=== PATIENT | female | born 1985 | race Hispanic/Latino ===

== ENCOUNTER 2016-11-20 01:44 | Inpatient (IN) | payer MEDICAID ==
[~2016-11-20] VITALS: Ht 142.2 cm; Wt 63.6 kg
[2016-11-20] MEDS ORDERED: Lactated Ringer's 1,000 ML IV PRN (07:23)
[2016-11-20] MEDS ORDERED: Carboprost 250 mCg/mL Inj IM PRN ×2 (07:25→17:20)
[2016-11-20] MEDS ORDERED: fentaNYL-PF 50 mCg/mL 2 mL Inj IVPUSH PRN (07:25)
[2016-11-20] MEDS ORDERED: Sodium Chloride LOK Flush 10 mL Syringe IVFLUSH PRN (07:25)
[2016-11-20] MEDS ORDERED: Oxytocin 30 Units/500 mL LR 30 UNITS in IV Premix 1 EACH IV PRN ×3 (07:25→17:20)
[2016-11-20] MEDS ORDERED: Hemorrhage Kit, Post Partum XX ONE ×2 (07:25→17:20)
[2016-11-20] MEDS ORDERED: Oxytocin 10 Unit/mL Inj IM PRN ×2 (07:25→17:20)
[2016-11-20] MEDS ORDERED: Ondansetron 2 mg/mL 2 mL Inj IVPUSH PRN (07:25)
[2016-11-20] MEDS ORDERED: Methylergonovine 0.2 mg/mL Inj IM PRN ×2 (07:25→17:20)
[2016-11-20 07:51] LABS: Mean Corpuscular Volume 84.9 fL (81-100)
[2016-11-20] MEDS ORDERED: PREN-56 PO (09:51)
--- NOTE | 2016-11-20 10:06 | HP ---
[address] [address] HISTORY AND PHYSICAL PATIENT: DARWIN GRADY : 1985 MR#: [id number] ADMIT: 11/20/2016 JOB ID: [id number] CHIEF COMPLAINT: The patient presented for scheduled induction of labor. HISTORY OF PRESENTING ILLNESS: This is a 31 years old, 6, para 5-0-0-5, with expected date of delivery of November 26, 2016, dated by a 13-week ultrasound. complicated with: * Gestational diabetes A1, diet controlled. * History of intrauterine growth restriction earlier in this . Estimated weight was at 9th percentile at 18 weeks, then 16th percentile at 26 weeks, then 13th percentile at 31 weeks and 18 percentile at 34 weeks, down to 14th percentile at 37 weeks. * History of borderline LISBETH. Last LISBETH was 8.5 cm at 37 weeks. * Obesity BMI 31 at the intake. * Rubella nonimmune. * Desires permanent sterilization. Consent signed September 26, 2016. * Marginal placenta previa, resolved. Induction of labor was recommended by [facility] at the [facility] secondary to the complications mentioned above. Today, the patient presented for scheduled induction. Informed consent was signed at the office on November 13, 2016. Risk, benefits and alternatives of induction were discussed in detail. All questions were answered. Informed consent was signed with american sign language interpreter patient clerical assistant. PAST MEDICAL HISTORY: * Vitamin D deficiency * Gastroesophageal reflex disease. PAST SURGICAL HISTORY: None. GYNECOLOGIC HISTORY: Menarche at age 12. Menses are irregular, last for seven days. Denies history of abnormal Pap smears. Denies history of sexually transmitted infections. Last Pap smear was June 13, 2016, with negative HPV and within normal limits cytology PAST OBSTETRIC HISTORY: First was in 2011, a term vaginal delivery, 7-pound with no anesthesia and no complications. Second in 2003, a term vaginal delivery, 7-pound infant, no anesthesia and no complications. Third in 2006, a term vaginal delivery, 9-pound with no anesthesia, no complication. Fourth in 2008, a term vaginal delivery, 7-pound infant with no anesthesia and no complications. Fifth in 2012. Term vaginal delivery, 9-pound infant with no anesthesia was complicated with gestational diabetes, diet controlled. SOCIAL HISTORY: Denies smoking, alcohol, or illicit drug abuse. FAMILY HISTORY: Diabetes in mother. MEDICATIONS: vitamins. ALLERGIES: No known drug allergies. REVIEW OF SYSTEMS: Eleven point review of systems negative except for the items mentioned in the history of presenting illness. PHYSICAL EXAMINATION: Blood pressure 98/58, heart rate 82, temperature 37.0. heart tones baseline 140s. Moderate variability. Positive accelerations. No decelerations. Contractions every 11 minutes. General: Alert, oriented to time, place and person. Head: Normocephalic, atraumatic. Neck: Supple. Chest: Equal air entry bilaterally. No added sounds. Cardiovascular: Regular rate and rhythm. Abdomen: Gravid. No tenderness. Estimated weight by Lyndon maneuver 6-1/2 pounds. Cervical exam: Cervix is 3 cm, 60%, medium consistency, -2 station and anterior with Hopkins score of 8. Lower extremities: Positive pulses bilaterally and no edema. LABORATORIES: labs: Blood type is O positive. Rubella non-immune, RPR nonreactive, hepatitis B surface antigen nonreactive. HIV nonreactive. Hematocrit 36% at 13 weeks. Antibody screening negative at 13 weeks. Quad screen negative. Chlamydia and gonorrhea screening negative on June 13, 2016. Group B strep test negative on October 23, 2016. Diabetes screening abnormal. Fasting 91, 1 hour 231, 2 hours 173 and 3 hours 164; that was at 27 weeks of gestation. Admission lab, white blood cells 9.6, hemoglobin 13.9, hematocrit 42.1%, platelets 238. ASSESSMENT: This is a 31 years old, 6, para 5-0-0-5, at 39 weeks and 1 day gestation with expected date of delivery of November 26, 2016, dated by a 13-week ultrasound, here for induction of labor for gestational diabetes, history of intrauterine growth retardation earlier in this , history of low amniotic fluid earlier in this , favorable cervix, Hopkins score of 8. PLAN: Risks, benefits and alternatives of induction of labor were discussed with the patient in detail including the risks of increased risk of section and failed induction. All questions were answered. The patient desires to proceed with induction as scheduled today. Informed consent was signed. Will start with Pitocin. MTDD
--- NOTE | 2016-11-20 14:21 | PCM.PNOBIP ---
Subjective Date of Service Nov 20, 2016 Subjective contractions getting stronger and more regular. Group B Strep Results: Negative Rubella: Non-Immune Blood Type: O RH Type: Positive Labs Laboratory Tests 11/20/16 07:35: White Blood Count 9.6, Red Blood Count 4.96, Hemoglobin 13.9, Hematocrit 42.1, Mean Corpuscular Volume 84.9, Mean Corpuscular Hemoglobin 28.0, Mean Corpuscular Hemoglobin Concent 33.0, Red Cell Distribution Width 14.0, Platelet Count 238 Exam Vital Signs Vital Signs Contraction frequency in minutes: MVUs: Vital Signs: VS reviewed, stable Heart Tracings Heart Tones Baseline 140 bpm Heart Rate Variability: Moderate Heart Rate Accelleration: Present Heart Rate Deceleration: Absent Heart Rate Category: I Tocometry/IUPC Contraction frequency in minutes: MVUs: Sterile Vaginal Exam Cervical Dilation: 4 cms Cervical Effacement: 70 % Station: -2 (AROM performed cervix become 5/70%/-2, IUPC placed blood noted in the cather then bloody stained amniotic fluid and passed 150 ml of cloted blood. ) Exam Abdomen: Abdomen non-tender General: Alert, Oriented X3 OB Intrapartum Assessment/Plan Assessment This is a 31 years old, 6, para 5-0-0-5, at 39 weeks and 1 day gestation with expected date of delivery of November 26, 2016, dated by a 13-week ultrasound, Induction of labor for gestational diabetes, history of intrauterine growth retardation earlier in this , history of low amniotic fluid earlier in this , On Pitocin AROM at 1324 Clear fluid Intrapartum bleeding EBL 150 ml, heart tones category 1, no uterine tenderness. Bleeding is minimal at this time. Continue close monitoring. Type and screen completed. Will cross and match 2 units on hold. Bertram Fregoso MD Nov 20, 2016 14:21
[2016-11-20] MEDS: Lactated Ringer's 1,000 ML IV SCH ×3 (15:19→17:20)
[2016-11-20] MEDS ORDERED: Measles-Mumps-Rubella Vaccine 0.5 mL Inj SUBQ ONE (17:20)
[2016-11-20] MEDS: Witch Hazel-Glycerin Pads TOPICAL PRN ×2 (18:38→19:21)
[2016-11-20] MEDS: Benzocaine (Dermoplast) 20% 60 Gm Spray TOPICAL PRN ×2 (18:38→19:21)
[2016-11-20] MEDS: LANOlin HPA 7 Gm Ointment TOPICAL PRN ×2 (18:38→19:21)
[2016-11-20] MEDS: Ascorbic Acid 500 mg Tablet PO SCH (20:37)
--- NOTE | 2016-11-20 21:23 | OP ---
[address] [address] OPERATIVE REPORT PATIENT: DARWIN GRADY : 1985 MR#: [id number] ADMIT: 11/20/2016 JOB ID: [id number] DATE OF SURGERY: 11/20/2016 SURGEON: Bertram Fregoso MD PREOPERATIVE DIAGNOSIS(ES): 1. Intrauterine at 39 weeks and 1 day gestation. 2. Gestational diabetes, diet controlled. 3. History of intrauterine growth restriction earlier in this . 4. History of low amniotic fluid earlier in this . POSTOPERATIVE DIAGNOSIS(ES): 1. Intrauterine at 39 weeks and 1 day gestation, status post normal vaginal delivery. 2. Gestational diabetes, diet controlled. 3. History of intrauterine growth restriction earlier in this . 4. History of low amniotic fluid earlier in this . PROCEDURE: 1. Spontaneous vaginal delivery. 2. Repair of first-degree perineal laceration. ESTIMATED BLOOD LOSS: 300 mL. COMPLICATIONS: None. OUTCOME: A male infant delivered in cephalic presentation with no nuchal cord. Weight 3154 g, equivalent to 6 pounds 15 ounces. Apgars 9 at one minute and 9 at five minutes. Clear amniotic fluid. Placenta delivered intact spontaneously with a three-vessel cord. ANESTHESIA: None. PROCEDURE IN DETAIL: This is a 31-year-old 6, para 5-0-0-5 who presented at 39 weeks and 1 day gestation for scheduled induction of labor for gestational diabetes and a history of intrauterine growth restriction and a history of low amniotic fluid earlier in this . Induction was started with Pitocin as the cervix was favorable with a Hopkins score of 8. The cervix was 3 cm, 60%, medium consistency, -2 and position. Then, artificial rupture of membranes was performed at 1324. Clear fluid was noted, followed by bleeding noted after placing the intrauterine pressure catheter. Estimated blood loss was 150 mL of clotted blood. heart tones remained a category 1 tracing throughout labor. Bleeding was minimal after the first episode of bleeding. The patient progressed in labor and was found to be completely dilated at 1634 with a strong urge to push. She pushed effectively to deliver via spontaneous vaginal delivery over an intact perineum without epidural. Time of delivery was 1642. She delivered a male in cephalic presentation, right occiput anterior position. No nuchal cord. Shoulders delivered without difficulty. The infant was placed on the maternal abdomen. Delayed cord clamping was performed after 1 minute. Cord segment was collected for gases. Cord pH is 7.4. Cord blood was collected for typing. Then, the placenta delivered spontaneously intact at 1650. The placenta was examined and found to be intact with a three-vessel cord. Placenta was sent to Pathology for further evaluation. The perineum was examined. A first-degree laceration was repaired with 3-0 chromic, repaired with two simple interrupted stitches and one [id number] stitch. The laceration was hemostatic at the end of the procedure. Oxytocin was started after delivery of the placenta and 400 mcg of misoprostol was placed rectally prophylactically for hemorrhage. All instrument, needle and sponge counts were correct x2. and mother were stable and recovering in the delivery room in stable condition. Bertram Terrazas MD, was present and scrubbed for the entire procedure.
[2016-11-21] MEDS: Lactated Ringer's 1,000 ML IV SCH ×9 (00:05→20:05)
[2016-11-21 06:33] LABS: Mean Corpuscular Hemoglobin 28.1 pg (27.0-35.0); Mean Corpuscular Volume 84.5 fL (81-100)
[2016-11-21] MEDS ORDERED: CeFAZolin Inj 2 GM in IV Premix 1 EACH IV ONE (09:26)
--- NOTE | 2016-11-21 09:29 | PCM.PNOBPP ---
Subjective Date of Service Nov 21, 2016 Lochia: Normal Gastrointestinal: Good Appetite (NPO since midnight ), No N/V, Passing Flatus Postop Activity: Ambulating Independently, Ambulating in [place] Group B Strep Results: Negative Rubella: Non-Immune Blood Type: O RH Type: Positive Labs Laboratory Tests 11/21/16 06:10: White Blood Count 12.6, Red Blood Count 4.06, Hemoglobin 11.4, Hematocrit 34.3, Mean Corpuscular Volume 84.5, Mean Corpuscular Hemoglobin 28.1, Mean Corpuscular Hemoglobin Concent 33.2, Red Cell Distribution Width 13.6, Platelet Count 229 Exam Vital Signs Vital Signs 114/63. 64, 16, HR 99, 36.7. Tmax 37.4 Vital Signs: VS reviewed, stable Exam Abdomen: Fundus firm Lungs: Clear to Auscultation Heart: Exam Unremarkable General: Alert, Oriented X3 OB Post Assessment/Plan Assessment 31 Y PPD#1 Multiparty desires permanent sterilization. Informed consent was signed at the office > 30 days from LANA. Surgical consent signed today after reviewing R/B/A of tubal ligation vs male sterilization or LARC. Patient desires tubal ligation as scheduled today. Bertram Fregoso MD Nov 21, 2016 09:29
[2016-11-21] MEDS ORDERED: Sodium Citrate-Citric Acid 15 mL Solution PO ONE (09:30)
--- NOTE | 2016-11-21 09:51 | PCM.HPANE ---
Patient Data Surgeon Admitting Provider:Bertram Fregoso MD Attending Provider:Bertram Fregoso MD Primary Care Physician:Gerber Persaud MD Other Provider:Rachel Mcclendon Anesthesia Reason for Visit Induction INDUCTION Ht/WT & BMI Body Mass Index Allergies Coded Allergies: No Known Allergies (Verified Allergy, Unknown, 10/31/03) Uncoded Allergies: NKDA (Allergy, Unknown, 10/31/03) No Known Allergies (Allergy, Unknown, 10/31/03) Past Anesthesia History Anesthesia History: Denies:: Abnormal Airway, Anesthesia Reactions, Difficult Intubation, Fam Anesthesia Reaction, Fam Malignant Hypertherm, Malignant Hyperthermia Additional Information: No hx anesthesia Medications Reported Medications [id number]/Iron Fumarate/FA/Dss ( 19 Tablet)1 Each Tablet1 Each PO 11/20/16 History History of ENT Problems?: No HEENT History: Denies:: Abnormal Airway Cataracts Difficult Intubation Dysphagia Glaucoma Hearing Problem Sinus Problem TMJ Denture Type: None Teeth Condition: Within Normal Limits Hx of Heart Problems?: No Cardiovascular History: Denies:: AICD Abdominal Aortic Aneurism Atrial Fibrillation Cardiac Surgery Chest Pain Congestive Heart Failure Coronary Artery Disease Edema Heart Murmur Hypertension Irregular Heartbeat Pacemaker Peripheral Vascular Rheumatic Fever Thrombophlebitis Valvular Heart Disease Hx of Respiratory Problem?: No Respiratory History: Denies:: Asthma COPD Chest Surgery Cough Dyspnea Emphysema Hemoptysis Oxygen Administration Pneumonia Pulmonary Embolism Tuberculosis Use of C-PAP Machine Use of Inhalers / NEBS Hx Neurologic Problems?: No Neurological History: Denies:: Alzheimer's Disease CVA Dementia Dizziness Headaches Multiple Sclerosis Parkinson's Disease Peripheral Neuropathy Seizures TIA Hx of GI Problems?: No Gastrointestinal History: Denies:: Cirrhosis Diverticulitis Gall Bladder Disease Gastroesphageal Reflux Gastrointestinal Bleeding Heartburn Hepatitis Hiatal Hernia Liver Disease Rectal Bleeding Hx of Problems?: No HX of Peritoneal Dialysis: No Hx Musculoskeletal Problems?: No Hx Surgeries?: No Hx Alcohol Use: NoHx Substance Use: No Smoking Status: Unknown if Ever Smoker Have You Smoked inLast 12 mo: No Stop/Bang Risk Assessment Category Category 1A: Patient has history of documented sleep apnea, and HAS NOT received any narcotic, sedative or anesthesia administration during this stay. Category 1B: Patient has history of documented sleep apnea, and HAS received any narcotic , sedative or anesthesia administration during this stay Category 2: Patient has SUSPECTED Obstructive Sleep Apnea, and HAS received any narcotic , sedative or anesthesia administration during this stay. Category 3: Patient has SUSPECTED Obstructive Sleep Apnea and HAS NOT received narcotic, sedative or anesthesia administration during this stay. Category 4: Outpatient in Procedural Areas with known sleep apnea or who screen positive for High Risk via the STOP/BANG questionnaire. Exam Exam General Appearance: Alert, Oriented X3 HEENT/AIRWAY: MP 2, Neck Movement (FROM) Lungs: Clear to Auscultation, Clear to Percussion Heart: Exam Unremarkable, Regular Rate/Rhythm Meds/Labs/Diagnostics Admission Meds Current Medications Lactated Ringer's (Lr) 1,000 ml @ 125 mls/hr Q8H IV Last administered on 15:19; Start 11/20/16 at 08:58 Ferrous Sulfate (Feosol) 325 mg BIDWM PO Last administered on 11/20/16 20:37; Start 11/20/16 at 17:30 Ascorbic Acid (Vitamin C) 500 mg BIDWM PO Last administered on 11/20/16 20:37 ; Start 11/20/16 at 17:30 Labs Test 11/21/16 06:10 White Blood Count 12.6th/mm3 (3.8-10.1) Red Blood Count 4.06mil/mm3 (3.90-5.20) Hemoglobin 11.4g/dL (12.0-15.6) Hematocrit 34.3% (35.0-46.0) Mean Corpuscular Volume 84.5fL (81-100) Mean Corpuscular Hemoglobin 28.1pg (27.0-35.0) Mean Corpuscular Hemoglobin Concent 33.2% (32.0-37.0) Red Cell Distribution Width 13.6% (12.3-15.4) Platelet Count 229bil/L (150-400) Plan Impression Patient chart reviewed, patient interviewed and anesthestic plan with risks, benefits, and alternatives discussed, and informed consent obtained. ASA Physical Status: ASA1 Normal Healthy Anesthetic Plan: SAB Bene/Risks/Altern/Consents: Yes HP Complete Prior to Induction: Yes Jose L Smith MD Nov 21, 2016 07:15
[2016-11-21] MEDS ORDERED: Lactated Ringer's 500 ML IV PRN (09:52)
[2016-11-21] MEDS ORDERED: Lactated Ringer's 1,000 ML IV SCH (09:52)
[2016-11-21] MEDS ORDERED: EPHEDrine Sulfate 50 mg/mL Inj IVPUSH PRN (09:55)
[2016-11-21] MEDS ORDERED: Ondansetron 2 mg/mL 2 mL Inj IVPUSH PRN (09:55)
[2016-11-21] MEDS ORDERED: MetoCLOpramide 5 mg/mL 2 mL Inj IVPUSH PRN (09:55)
[2016-11-21] MEDS ORDERED: Phenylephrine 10,000 mCg/mL Inj IVPUSH PRN (09:55)
[2016-11-21] MEDS ORDERED: fentaNYL-PF 50 mCg/mL 2 mL Inj IVPUSH PRN (09:55)
[2016-11-21] MEDS ORDERED: HYDROmorphone 1 mg/mL Inj IVPUSH PRN (09:55)
[2016-11-21] MEDS ORDERED: Propofol 10 mg/mL 20 mL Inj ONE (10:39)
--- NOTE | 2016-11-21 10:53 | PCM.ANEP1 ---
Post Anesthesia PACU Phase 1 Assessment Anesthetic Administered: SAB Level of Alertness: Awake, talking RICKS's with Equal Strength: No (SAB) Pain: No Pain Scale Score: 0 Nausea or Vomiting: No CV Function & Hydration Stable: Yes Airway Device: Oxygen Delivery: Room Air Lungs: Clear to Auscultation, Clear to Percussion PACU Phase 2 Assessment Complications: No Follow up Care: No Patient Instructions Provided: N/A Jose L Smith MD Nov 21, 2016 10:53
[2016-11-21] MEDS ORDERED: hydrOXYzine Pamoate 25 mg Capsule PO PRN (11:05)
[2016-11-21] MEDS ORDERED: diphenhydrAMINE 50 mg Capsule PO PRN (11:05)
[2016-11-21] MEDS: Ascorbic Acid 500 mg Tablet PO SCH ×2 (12:55→21:24)
[2016-11-21] MEDS: oxyCODONE-Acetamin 5-325 mg Tablet PO PRN ×2 (12:56→20:21)
--- NOTE | 2016-11-21 13:52 | OP ---
[address] [address] OPERATIVE REPORT PATIENT: DARWIN GRADY : 1985 MR#: [id number] ADMIT: 11/20/2016 JOB ID: [id number] DATE OF SURGERY: 11/21/2016 PREOPERATIVE DIAGNOSIS(ES): 1. day #1 status post normal vaginal delivery. 2. Multiparity, desires permanent sterilization. 3. Gestational diabetes, diet controlled. POSTOPERATIVE DIAGNOSIS(ES): 1. day #1 status post normal vaginal delivery. 2. Multiparity, desires permanent sterilization. 3. Gestational diabetes, diet controlled. PROCEDURE: tubal ligation via mini laparotomy. SURGEON: Bertram Fregoso M.D. VARNISHER APPRENTICE: None. ESTIMATED BLOOD LOSS: 100 mL. IV FLUID: 600 mL of crystalloid fluid. URINE OUTPUT: Patient voided prior to the procedure. COMPLICATIONS: None. FINDINGS: Uterus and fundus was at the level of the umbilicus. Normal fallopian tubes were traced to the fimbria bilaterally. INDICATION: This is a 31-year-old 6, para 6 day #1, desires permanent sterilization. Sterilization consent was signed on September 26, 2016, at the office prior to the procedure. Risks benefits and alternatives of the procedure were discussed with the patient in detail, including and not limited to, risk of infection, injury to adjacent organs, risk of bleeding, risk of anesthesia, risk of failure of the procedure and risk of a after tubal sterilization is estimated to be 1 in 200, risk of ectopic in third of the failed tubal ligation pregnancies. The patient understands tubal ligation is a permanent procedure, alternatives including LARCK and male sterilization were discussed including the risks, benefits and alternatives of each. Possible need of hormonal treatment in the future for menstrual abnormalities if needed may occur. All questions were answered. The patient desires to proceed with a tubal ligation as scheduled today. PROCEDURE: After informed consent was obtained, the patient was taken to the operation room. She was placed under spinal anesthesia with adequate block. Then, she was placed in supine position. She was prepped and draped in the usual sterile fashion for abdominal procedure. After confirmation of anesthesia adequacy, the skin in the infraumbilical area was grasped with Allis clamps in a horizontal fashion approximately 5 cm apart. Then a 4 cm skin incision was made with a scalpel. Then, the subcutaneous layer was dissected with Metzenbaum scissors down to the fascia. Fascia was grasped and elevated with Allis clamps and fascial incision was made with curved scissors. The fascial edges were tagged with sutures. Then, the peritoneum was identified, brought to the incision with the hemostats and incised with Metzenbaum scissors. Confirmation of intraperitoneal access with no evidence of injury or bleeding was noted at this time. Then using retractors, the fundus was followed out to the right fallopian tube that was identified, grasped with the Justine clamp and was exteriorized and traced out to the fimbria. Then an area clear of the vascularity was identified in the mesosalpinx. A window was created with Bovie cautery. Then, a middle segment of the tube was double tied in either sides. Then, the middle segment was excised. Hemostasis was ensured. The tube was placed back into the abdomen. The same procedure was performed in the left side where the fundus was followed out to the left fallopian tube that was identified, grasped with Katerin clamps, and was exteriorized and traced out to the fimbria. An area clear of the vascularity in the mesosalpinx was identified, a window was created and the middle segment of the tube was double tied in either sides and was excised. Hemostasis was ensured and the remaining stumps of the tube was placed back into the abdominal cavity. The resected segments of the tube were sent to Pathology for confirmation in separate containers. The tubes were re-examined in the abdomen and found to be hemostatic with no evidence of bleeding or visceral injury. Then, the fascia was closed using 0-Vicryl in a running fashion. The subcutaneous layer was approximated with a single stitch of 0 chromic. The skin was closed with 4-0 Monocryl in subcuticular fashion. Then Steri-Strips were applied followed by adhesive bandage. All instruments, needles and sponge counts were correct x2. The patient tolerated the procedure well and was transferred to the recovery room in stable condition. Bertram Terrazas M.D., was present and scrubbed for the entire procedure.
--- NOTE | 2016-11-21 22:10 | DRSVH ---
PROCEDURE: X-RAY ABDOMEN, ONE VIEW ([id number]) INDICATIONS: POSSIBLE RETAINED SURGICAL INSTRUMENT POST TUBAL TECHNIQUE: One view of the abdomen acquired. COMPARISON: None. FINDINGS: Surgical changes and devices: None. Bowel: There is moderate gaseous distention of the stomach. Bowel gas pattern is otherwise unremarkab le. Soft tissues: No suspicious abdominal calcifications. Visualized solid organ contours appear normal in size. No unexpected radiopaque foreign bodies. Bones: No suspicious bony lesions. IMPRESSION: No unexpected radiopaque foreign bodies. No acute intra-abdominal findings. Dictated by: Nimco Christian M.D. on 11/21/2016 at 22:06 Approved by: Nimco Christian M.D. on 11/21/2016 at 22:09
[2016-11-22] MEDS: Lactated Ringer's 1,000 ML IV SCH ×3 (00:58→06:05)
[2016-11-22] MEDS: oxyCODONE-Acetamin 5-325 mg Tablet PO PRN (04:39)
[2016-11-22] MEDS ORDERED: Sodium Citrate-Citric Acid 15 mL Solution PO ONE (06:00)
[2016-11-22 06:35] LABS: Mean Corpuscular Volume 85.6 fL (81-100)
[2016-11-22 11:21] VITALS: BP 117/62; PULSE 59; RESP 18
[2016-11-22] MEDS: Ascorbic Acid 500 mg Tablet PO SCH (11:32)
--- NOTE | 2016-11-22 12:22 | PCM.DIOB ---
Obstetrical Disch Instruction Date of Service: Nov 22, 2016 Dates of Hospitalization Date of Hospital Admission Nov 20, 2016 at 07:14 Providers Admitting Physician: Bertram Fregoso MD Primary Care Physician: Gerber Persaud MD Attending Physician: Bertram Fregoso MD Discharge Diagnosis Discharge Diagnosis S/ P and post tubal ligation Problems: Diet Discharge Diet: No restrictions Activity Discharge Activity-General: No restrictions, Be up and about, No lifting >15 pounds for 2 weeks, No lifting >10 pounds for 4-6 weeks Dressing and Incisional Care Hygiene: May shower, May shower after, DO NOT soak incision under water Follow Up Plan Follow-up Provider (F9): Bertram Fregoso MD Follow-up appointment: Weeks (2) Call your provider for: Fever or Chills, Shortness of breath, Heavy vaginal bleeding, Heavy bleeding, Epigastric pain, Excessive constipation, Vaginal discomfort, Red painful breasts, Other (Headache, change in vision, Nausea/ vomiting, leg swelling, change in color or pain. ) Bertram Fregoso MD Nov 22, 2016 12:22
[2016-11-22] MEDS ORDERED: OXYC1TAB24 PO (12:23)
[2016-11-22] MEDS ORDERED: DOCU-41 PO (12:23)
[2016-11-22] MEDS ORDERED: IBUP-1827 PO (12:23)
--- NOTE | 2016-11-22 14:49 | PATH ---
SURGICAL PATHOLOGY Attending Physician:Bertram Fregoso CASE STATUS: Signed Out PATIENT NAME: DOMINIC GRADY PID: [id number] : 1985 DATE COLLECTED:11/21/2016 16:47 SPECIMEN: 1: Fallopian Tube, Sterilization 2: Fallopian Tube, Sterilization CLINICAL HISTORY: BILATERAL FALLOPIAN TUBES FINAL DIAGNOSIS: 1. 2.SEGMENTS OF RIGHT AND LEFT FALLOPIAN TUBES (STERILIZATION PROCEDURE): NO SIGNIFICANT PATHOLOGIC CHANGE. ICD10 Z30.2 GROSS DESCRIPTION: The specimen is received in 2 containers not labeled as to the fixative and labeled with the patient's name. 1). The specimen is labeled "R. fallopian tube" and consists of a cylindrical shaped portion of tissue which measures 1.5 x 0.6 x 0.6 CM. The specimen is inked blue. The specimen is sectioned into 4 pieces and entirely submitted in cassette 1A. 2). The specimen is labeled "L. fallopian tube" and consists of a cylindrical shaped portion of tissue which measures 1.8 x 0.6 x 0.6 CM. The specimen is inked blue. The specimen is sectioned into 4 pieces and entirely submitted in cassette 2A. 11/21/2016 DAC MICRO DESCRIPTION: See diagnosis. ICD-9 CODES: CPT CODES: 1: 22313 2: 24366 Electronically Signed Out Tra Maravilla MD [facility] Pathology [facility] [address], [place] [address] Technical component performed at [facility], [facility] [address], [place], [address]
--- NOTE | 2016-11-22 15:12 | PCM.DC.OB ---
Obstetrical Discharge Summary Date of Service Nov 22, 2016 Date of hospital admission Nov 20, 2016 at 07:14 Providers Admitting Physician: Cong Omer MD Primary Care Physician: Gerber Persaud MD Attending Physician: Cong Omer MD Docusate Sodium (Colace) 100 Mg Capsule 100 MG PO DAILY Prescribed by: CONG OMER MD Ibuprofen (Ibuprofen) 600 Mg Tablet 600 MG PO Q6H PRN PRN For Mild Pain Prescribed by: CONG OMER MD [id number]/Iron Fumarate/FA/Dss ( 19 Tablet) 1 Each Tablet 1 EACH PO ( Reported) Last Taken: Unknown Dose on 11/20/16 oxyCODONE-Acetaminophen 5-325 mg ( oxyCODONE-Acetaminophen 5-325 mg) 1 Each Tablet 1-2 TAB PO Q4H PRN PRN For Pain Prescribed by: MD Zenobia LAGUNA Omaima A MD Nov 22, 2016 15:12
--- NOTE | 2016-11-23 12:38 | PATH ---
SURGICAL PATHOLOGY Attending Physician:Bertram Fregoso CASE STATUS: Signed Out PATIENT NAME: DOMINIC GRADY PID: [id number] : 1985 DATE COLLECTED:11/20/2016 00:00 SPECIMEN: Placenta CLINICAL HISTORY: GESTATIONAL DIABETES MELLITUS, ANTIPARTUM HEMORRHAGE (IN LABOR), S/P SPONTANEOUS VAGINAL DELIVERY 1). PLACENTA FINAL DIAGNOSIS: 1.PLACENTA WITH UMBILICAL CORD AND MEMBRANES: 1. PLACENTA: 468 GRAMS, WHICH IS APPROXIMATELY THE 40TH PERCENTILE FOR 39 WEEKS 1 DAY GESTATION. SMALL MARGINAL INFARCTS INVOLVING APPROXIMATELY 10% OF THE PERIPHERAL PLACENTA. NEGATIVE FOR SIGNIFICANT INFLAMMATION. 2.UMBILICAL CORD: 8.8 CM IN LENGTH WITH THREE NORMAL BLOOD VESSELS. CORD ATTACHED 3.5 CM FROM THE PLACENTAL EDGE. NEGATIVE FOR SIGNIFICANT INFLAMMATION. 3. MEMBRANES: RUPTURED AT THE FREE PLACENTAL EDGE. NEGATIVE FOR SIGNIFICANT INFLAMMATION. ICD10 O24.419 GROSS DESCRIPTION: The specimen is received in formalin, labeled with the patient's name and consists of an intact placenta and includes placental disc (468 g, 19.8 x 15.8 x 3.8 cm), umbilical cord (length-8.8 cm, diameter-1.6 x 1.1 cm) and membranes. The membranes are ruptured at the free edge of the placenta and are semi-translucent. The umbilical cord is attached 3.5 cm from the edge of the placenta and contains 3 vessels. The surface is smooth and shiny with no evidence of meconium. The maternal surface is dark maroon with normal cotyledon formation. The placental disc is spongy and focally fibrous involving approximately 10 % of the peripheral placenta. No hematomas, nodules, masses, or lesions identified are identified. Section code: (A) edge of placenta with membranes, umbilical cord; (B-C, D-E, F) placenta, 3 full thickness sections. 11/21/16 JM MICRO DESCRIPTION: See diagnosis. ICD-9 CODES: CPT CODES: 1: 32303 Electronically Signed Out Tra Maravilla MD [facility] [address], [place] [address] Technical component performed at [facility], [address], [address]
== END 2016-11-22 16:45 | disposition home or self-care (01) | DRG 767 ==
LOC: FBC 07:14
PROVIDERS: ADMIT Obstetrics & Gynecology; ATTEND Obstetrics & Gynecology
PROC: 10E0XZZ Delivery of Products of Conception, External Approach (ICD-10-PCS; principal; 2016-11-20)
PROC: 0HQ9XZZ Repair Perineum Skin, External Approach (ICD-10-PCS; 2016-11-20)
PROC: 3E033VJ Introduction of Other Hormone into Peripheral Vein, Percutaneous Approach (ICD-10-PCS; 2016-11-20)
PROC: 10907ZC Drainage of Amniotic Fluid, Therapeutic from Products of Conception, Via Natural or Artificial Opening (ICD-10-PCS; 2016-11-20)
PROC: 10H07YZ Insertion of Other Device into Products of Conception, Via Natural or Artificial Opening (ICD-10-PCS; 2016-11-20)
PROC: 0UB70ZZ Excision of Bilateral Fallopian Tubes, Open Approach (ICD-10-PCS; 2016-11-21)
DX: O24.420 Gestational diabetes mellitus in childbirth, diet controlled (principal); E66.9 Obesity, unspecified; Z3A.39 39 weeks gestation of pregnancy; Z37.0 Single live birth; O70.0 First degree perineal laceration during delivery; O99.214 Obesity complicating childbirth; Z68.31 Body mass index [BMI] 31.0-31.9, adult; Z30.2 Encounter for sterilization